=== PATIENT | female | born 1985 | race Caucasian/White ===

== ENCOUNTER 2024-08-11 13:26 | Emergency (ER) | payer OTHER, SELFPAY ==
--- NOTE | ~2024-08-11 | US_ITS ---
EXAMINATION: US OB <= 14 weeks fetus INDICATION: bleeding in TECHNIQUE: Sonography of the pelvis was performed by transabdominal and transvaginal techniques. COMPARISON: None. RESULT: Uterus: 9.9 x 6.3 x 8.3 cm. Anteverted. Homogenous myometrium. Intrauterine gestational sac: Single present. Mean Sac Diameter: 3.91 cm, corresponding gestational age 9 week 2 days. Yolk sac: None visualized. Embryo: Not definitively visualized. There is a small echogenic appendage within the gestational sac measuring approximately 7 mm, may represent tissue, no definite heart motion detected. Subgestational hematoma: Absent . Right ovary: 2.1 x 2.2 x 1.9 cm. Vascular flow is present. No adnexal mass. Left ovary: 2.4 x 1.7 x 2.0 cm. Vascular flow is present. No adnexal mass. Pelvis free fluid: None. IMPRESSION: Intrauterine gestational sac with mean sac diameter of 3.9 cm, corresponding to 9 weeks and 2 days. N o normal pole identified. 7 mm echogenic focus that may represent tissue, without identif iable heart motion. These findings are concerning for failed . Reviewed, dictated and finalized at location [facility]. IMPRESSION: Intrauterine gestational sac with mean sac diameter of 3.9 cm, corresponding to 9 weeks and 2 days. No normal pole identified. 7 mm echogenic focus that may represent tissue, without identifiable heart motion. These findings are concerning for failed .
[2024-08-11 13:27] VITALS: BP 124/76; PULSE 68; RESP 16; TEMP 36.5; O2SAT 100
[2024-08-11 17:03] LABS: Basophils Absolute Auto 0.1 K/mm3 (0.0-0.1); Basophils Percent Auto 0.6 % (0.2-1.2); Eosinophils Absolute Auto 0.2 K/mm3 (0-0.3); Eosinophils Percent Auto 1.4 % (0-4.4); Hematocrit 40.5 % (37.0-47.0); Hemoglobin 13.2 g/dL (12.0-15.0); Immature Granulocyte Absolute 0.09 K/mm3 (0.00-0.031); Immature Granulocyte Percent A 0.7 % (0-0.5); Lymphocytes Absolute Auto 4.27 K/mm3 (0.9-3.2); Lymphocytes Percent Auto 33.9 % (18.3-44.2); Mean Corpuscular HGB Conc 32.6 g/dl (32-36); Mean Corpuscular Hemoglobin 28.9 pg (26-34); Mean Corpuscular Volume 88.8 fl (80-100); Mean Platelet Volume 9.2 fl (7.4-10.4); Monocytes Percent Auto 7.5 % (2.6-8.5); Neutrophils Percent Auto 55.9 % (45.5-73.1); Platelet Count Result 334 k/mm3 (150-375); Red Blood Count 4.56 M/mm3 (4.2-5.4); Red Cell Distribution Width 15.2 % (11.5-14.5); White Blood Count 12.6 K/mm3 (4.5-10.0)
[2024-08-11 17:08] VITALS: O2SAT 98
[2024-08-11 17:09] VITALS: BP 100/70; PULSE 82; RESP 18; O2SAT 99
--- NOTE | 2024-08-11 17:09 | ED.FEMALEGU ---
HPI - Female Genitourinary General Chief complaint: Vaginal Bleeding Stated complaint: 10 weeks -spotting Time Seen by Provider: 08/11/24 16:56 History of Present Illness HPI Narrative: 39-year-old female with history of scoliosis, spinal fusion, LEEP procedure who is A1 presents to emergency department for bleeding in . Patient states her LMP was sometime in May of 2024. She states yesterday around 3:00 p.m. she started noting spotting on the toilet paper when she would wipe. States this morning she passed small pea-sized clots when she would wipe. She did place a PE liner today around 9:00 a.m. but has not had to change it since. She reports lower abdominal cramping. Denies fever, dysuria hematuria, vaginal discharge or concern for STDs. Denies chest pain or shortness of breath, lightheadedness or syncope. She has not established with an dominatrix. Related Data Allergies Allergy/AdvReac Type Severity Reaction Status Date / Time No Known Allergies Allergy Verified 08/11/24 13:30 Review of Systems Review of Systems: All systems reviewed & are unremarkable except as noted in HPI and below Exam Narrative: GENERAL: Well-appearing, well-nourished, and in no acute distress. HEAD: Normocephalic, atraumatic. EYES: EOMI. ENT: Nares clear, no rhinorrhea or epistaxis. Mucous membranes moist. NECK: Supple. CHEST: Clear to auscultation. No respiratory distress. HEART: Regular rate and rhythm. No murmur heard. Normal peripheral pulses. ABDOMEN: Normoactive bowel sounds. Abdomen soft tenderness in the suprapubic region. No rebound or rigidity. No CVA tenderness. : Exam deferred EXTREMITIES: Normal range of motion. No edema. SKIN: Warm, dry, no rash. NEURO: No focal deficits. Alert and oriented x3 Course Vital Signs Vital signs: Vital Signs Temperature 97.7 F 08/11/24 13:27 Pulse Rate 68 08/11/24 13:27 Respiratory Rate 16 08/11/24 13:27 Blood Pressure 124/76 08/11/24 13:27 Pulse Oximetry 100 08/11/24 13:27 Temperature 97.7 F 08/11/24 13:27 Pulse Rate 68 08/11/24 13:27 Respiratory Rate 16 08/11/24 13:27 Blood Pressure 124/76 08/11/24 13:27 Pulse Oximetry 100 08/11/24 13:27 MDM - Female Genitourinary MDM Narrative Medical decision making narrative: 39-year-old female who is G2, P0, A1 presents to the emergency department for vaginal spotting in . LMP May 2024. bleeding is light. Triage vitals are stable. She is afebrile nontoxic appearing. Exam significant for the above. Pt politely declines pelvic exam. CBC with mild leukocytosis of 12.6, hemoglobin is stable at 13.2. Coags are unremarkable. Chemistries are unremarkable. UA with blood, 11-20 wbc's and 4+ bacteria. Will provide Keflex for presumed UTI, urine culture is pending. Blood type is A positive, RhoGAM is not indicated. Beta hCG levels 3007.70. Transvaginal ultrasound reveals an intrauterine gestational sac with mean sac diameter 3.9 cm corresponding to 9 weeks and 2 days. There is no normal pole identified. There is a 7 mm echogenic focus that may represent a tissue without identifiable heart motion. These findings are concerning for a failed . Patient received Tylenol with improvement. I discussed the case with OBGYN on-call, Dr. Hermosillo, who agrees to have the pt f/u on an outpatient basis. Pt was started on keflex for UTI and Advised to follow-up closely with OBGYN. Discussed strict ED return precautions. She is agreeable with the plan verbalized understanding. Discharged in stable condition. Lab Data 08/11/24 16:53 08/11/24 16:53 Labs: Lab Results 08/11/24 08/11/24 Range/Units 16:53 17:35 WBC 12.6 H (4.5-10.0) K/mm3 RBC 4.56 (4.2-5.4) M/mm3 Hgb 13.2 (12.0-15.0) g/dL Hct 40.5 (37.0-47.0) % MCV 88.8 (80-100) fl MCH 28.9 (26-34) pg MCHC 32.6 (32-36) g/dl RDW 15.2 H
[2024-08-11 17:14] LABS: Alanine Aminotransferase 11 U/L (6-35); Albumin Level 3.7 g/dL (3.5-5.1); Alkaline Phosphatase 91 U/L (38-126); Anion Gap 5 mmol/L (4-12); Aspartate Amino Transferase 19 U/L (14-36); Bilirubin,Total 0.2 mg/dL (0.2-1.3); Blood Urea Nitrogen 11 mg/dL (7-17); Calcium 8.7 mg/dL (8.4-10.2); Carbon Dioxide 27 mmol/L (22-30); Chloride 104 mmol/L (98-107); Estimated Glomerular Filt Rate > 60; Glucose 98 mg/dL (65-110); Potassium 3.9 mmol/L (3.4-5.0); Sodium 136 mmol/L (137-145)
[2024-08-11 17:16] LABS: INR 0.9; Prothrombin Time 12.8 Seconds (11.1-14.7)
[2024-08-11 17:19] LABS: Partial Thromboplastin Time 23.9 Seconds (22.3-36.8)
[2024-08-11 17:45] LABS: Add Urine Microscopic? YES; Appearance Urine Clear (Clear); Bacteria Urine 4+ /hpf; Bilirubin Urine Negative (Negative); Blood Urine 3+ (Negative); Color Urine Yellow (Yellow); Glucose Urine UA Negative (Negative); Ketones Urine Negative (Negative); Leukocyte Esterase Ur Trace LEU/UL (Negative); Nitrate Urine Negative (Negative); Non Pathogenic Casts 0-2; Protein Urine Negative (Negative); RBC Urine 0-2 /hpf (0-2); Specific Grav Ur 1.006 (1.001-1.035); Squamous Epithelial Cell Urine Few /hpf (Few); Urobilinogen Urine 0.2 mg/dL (<2.0)
[2024-08-11] MEDS: ACETAMINOPHEN 500 MG TABLET 1000 MG PO (17:57)
[2024-08-11] MEDS: CEPHALEXIN 500 MG CAPSULE PO (18:46)
== END 2024-08-11 17:12 | disposition home or self-care (01) ==
PROVIDERS: General Practice; Emergency Provider Physician Assistant; PCP Physician Assistant
DX: O03.4 Incomplete spontaneous abortion without complication (principal); N39.0 Urinary tract infection, site not specified
CPT/HCPCS: 36415; 76801; 80053; 81001; 84702; 85025; 85461; 85610; 85730; 86850; 86900; 86901; 87086; 87186; 99284; A9270